=== PATIENT | female | born 1970 ===

== ENCOUNTER → 2022-07-18 | Outpatient (CLI) | payer SELFPAY ==
[2022-07-23 17:09] LABS: HPV 16 Negative (Negative); HPV 18 Negative (Negative); HPV OTHER HR TYPES Negative (Negative)
== END | disposition home or self-care (01) ==
LOC: RAD SHORT 17:32 → LAB 17:32
PROVIDERS: Obstetrics & Gynecology
DX: Z01.419 Encounter for gynecological examination (general) (routine) without abnormal findings (principal)
CPT/HCPCS: 87624; G0145